=== PATIENT | male | born 1995 | race American Indian/Alaskan Native ===

== ENCOUNTER 2017-08-10 21:39 | Emergency (ER) | payer SELFPAY ==
[2017-08-10 21:50] VITALS: BP 142/82
[2017-08-10] MEDS ORDERED: TYLENOL ONE (22:03)
[2017-08-10] MEDS ORDERED: TYLENOL PO ONE (22:20)
--- NOTE | 2017-08-10 22:45 | XRay Report ---
FINAL REPORT PROCEDURE: XR HAND 3+V LT TECHNIQUE: LEFT hand radiographs, AP, lateral, and oblique views. CPT 44903-CY HISTORY: laceration to L 5th digit COMPARISON: No prior studies are available for comparison. FINDINGS: Fracture (s) and/or Dislocation(s): None . Alignment: Normal . Joint space(s): Normal . Soft tissues: Irregular soft tissue laceration is noted involving the 5th distal phalanx. Bone mineralization: Normal . Foreign bodies: None . IMPRESSION: No acute bony or joint injury.
[2017-08-11] MEDS ORDERED: PERCOCET 5/325 ONE (03:50)
[2017-08-11] MEDS ORDERED: PERCOCET 5/325 PO ONE ×2 (03:50→06:56)
[2017-08-11] MEDS ORDERED: XYLOCAINE 1% MPF 5 mL INFILTRATI ONE (05:39)
[2017-08-11] MEDS ORDERED: NACL 0.9% IR ONE (05:40)
[2017-08-11] MEDS ORDERED: TRIPLE ANTIBIOTIC TP ONE (05:40)
[2017-08-11] MEDS ORDERED: BOOSTRIX IM ONE (05:40)
[2017-08-11] MEDS ORDERED: CLEOCIN IM ONE (06:55)
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
== END 2017-08-11 09:04 | disposition home or self-care (01) ==
LOC: ED 21:39
DX: S61.217A Laceration without foreign body of left little finger without damage to nail, initial encounter (principal); S63.602A Unspecified sprain of left thumb, initial encounter; F17.200 Nicotine dependence, unspecified, uncomplicated; F12.10 Cannabis abuse, uncomplicated; W27.8XXA Contact with other nonpowered hand tool, initial encounter; Y93.89 Activity, other specified; Y99.8 Other external cause status; Y92.89 Other specified places as the place of occurrence of the external cause
CPT/HCPCS: 90471; 90715; 96372; A6250

== ENCOUNTER 2017-08-17 21:59 | Emergency (ER) | payer SELFPAY ==
[2017-08-17 23:35] VITALS: BP 133/75
[2017-08-18 00:12] LABS: Basophils # (Auto) 0.1 K/mm3 (0.0-0.1); Basophils % (Auto) 0.9 % (0.0-1.8); Eosinophils # (Auto) 0.2 K/mm3 (0.0-0.4); Eosinophils % (Auto) 2.6 % (0.0-4.3); Hematocrit 38.3 % (35.5-45.6); Hemoglobin 12.7 gm/dl (11.8-15.2); Lymphocytes # (Auto) 3.5 K/mm3 (1.2-5.4); Lymphocytes % (Auto) 44.8 % (13.4-35.0); Mean Corpuscular HGB Conc 33 % (32-34); Mean Corpuscular Hemoglobin 29 pg (28-32); Mean Corpuscular Volume 87 fl (84-94); Monocytes # (Auto) 0.5 K/mm3 (0.0-0.8); Monocytes % (Auto) 6.5 % (0.0-7.3); Platelet Count 257 K/mm3 (140-440); Red Blood Count 4.42 M/mm3 (3.65-5.03); Red Cell Distribution Width 14.6 % (13.2-15.2)
--- NOTE | 2017-08-18 00:17 | XRay Report ---
FINAL REPORT PROCEDURE: XR FINGER(S) 2+V LT TECHNIQUE: LEFT 5th finger radiographs, including AP, lateral, and oblique views. HISTORY: wound to left pinky finger COMPARISON: No prior studies are available for comparison. FINDINGS: Fracture (s) and/or Dislocation(s): There is no definite fracture. There is motion artifact on 1 of the views.. Alignment: Normal. Joint space(s): Normal . Soft tissues: There is mild soft tissue swelling of the 5th digit. There is no foreign body.. Bone mineralization: Normal . Foreign bodies: None . IMPRESSION: There is no fracture or malalignment. There is soft tissue swelling.
[2017-08-18 00:27] LABS: Alanine Aminotransferase 12 units/L (7-56); Albumin 4.5 g/dL (3.9-5); BUN/Creatinine Ratio 10; Blood Urea Nitrogen 9 mg/dL (9-20); Calcium 9.1 mg/dL (8.4-10.2); Hemolysis Index 44
[2017-08-18 00:39] LABS: INR 0.85 (0.87-1.13)
[2017-08-18 00:40] LABS: Partial Thromboplastin Time 31.8 Sec. (24.2-36.6)
--- NOTE | 2017-08-18 00:59 | Emergency Department Report ---
- General Chief Complaint: Laceration/Recheck/Suture Stated Complaint: WOUND CHECK Source: patient Mode of arrival: Ambulatory Limitations: No Limitations - History of Present Illness Initial Comments: 22-year-old -[place] male comes in for wound check/suture removal. Patient reports that he had sutures placed to his left fifth finger 7 days ago. Patient had approximately 20 sutures placed in his finger. He now comes in with the end of the finger black with decreased sensation. Patient reports that he's been cleaning with soap and water not scrubbing the area to agitate the sutures at all. He reports that he has been taken his medication as prescribed. He reports he has not been taken the pain medication as he knows the Keflex is more important. Patient originally injured his finger on a circular saw at work. Extremity Location: Left: Hand (this digit tip) Place: work Patient Tetanus UTD: Yes Context: accidental Associated Symptoms: loss of feeling/numbness - Related Data Previous Rx's Medication Instructions Recorded Last Taken Type Acetaminophen/Codeine [Tylenol 1 tab PO Q6H PRN #15 tab 08/11/17 Unknown Rx /Codeine # 3 tab] Cephalexin [Keflex] 500 mg PO Q8HR 10 Days #30 cap 08/11/17 Unknown Rx Ibuprofen [Motrin] 600 mg PO Q8H PRN #15 tablet 08/11/17 Unknown Rx Allergies Allergy/AdvReac Type Severity Reaction Status Date / Time No Known Allergies Allergy Unverified 08/10/17 22:03 ED Review of Systems ROS: Stated complaint: WOUND CHECK Other details as noted in HPI Constitutional: denies: chills, fever Gastrointestinal: denies: abdominal pain, nausea, vomiting, diarrhea Skin: change in color (left fifth distal digit) Neurological: numbness (left fifth digit tip) Psychiatric: denies: anxiety, depression Hematological/Lymphatic: denies: easy bleeding, easy bruising ED Past Medical Hx - Past Medical History Previous Medical History?: No Additional medical history: scoliosis - Social History Smoking Status: Current Every Day Smoker Substance Use Type: Marijuana - Medications Home Medications: Home Medications Medication Instructions Recorded Confirmed Last Taken Type Acetaminophen/Codeine [Tylenol 1 tab PO Q6H PRN #15 tab 08/11/17 Unknown Rx /Codeine # 3 tab] Cephalexin [Keflex] 500 mg PO Q8HR 10 Days #30 cap 08/11/17 Unknown Rx Ibuprofen [Motrin] 600 mg PO Q8H PRN #15 tablet 08/11/17 Unknown Rx ED Physical Exam - General Limitations: No Limitations General appearance: alert, in no apparent distress - Head Head exam: Present: atraumatic, normocephalic - ENT ENT exam: Present: mucous membranes moist - Expanded Upper Extremity Exam Left Hand Wrist exam: Present: dislocation (left fifth distal digit black /no perfusion) Vascular: Present: vascular compromise (left fifth distal digit) - Psychiatric Psychiatric exam: Present: normal affect, normal mood - Skin Skin exam: Present: warm, dry, intact. Absent: normal color (left distal fifth digit black), rash ED Course Vital Signs 08/17/17 23:29 Temperature 98.2 F Pulse Rate 61 Respiratory 14 Rate Blood Pressure 133/75 O2 Sat by Pulse 100 Oximetry ED Medical Decision Making - Lab Data Result diagrams: 08/17/17 23:45 08/17/17 23:45 - Radiology Data Radiology results: report reviewed, image reviewed FINDINGS: Fracture (s) and/or Dislocation(s): There is no definite fracture. There is motion artifact on 1 of the views.. Alignment: Normal. Joint space(s): Normal . Soft tissues: There is mild soft tissue swelling of the 5th digit. There is no foreign body.. Bone mineralization: Normal . Foreign bodies: None . IMPRESSION: There is no fracture or malalignment. There is soft tissue swelling. Transcribed By: [place] Dictated By: JEFF FRANKLIN MD Electronically Authenticated By: JEFF FRANKLIN MD Signed Date/Time: 08/18/1712 DD/ TD/TT: 08/18/1712 - Medical Decision Making Patient has been evaluated by this provider fast track. Labs appear to be stable x-ray shows no fracture. Dr. Hammond evaluated patient's finger. We discussed to keep the sutures in and refer him to [facility] within the next 24-48 hours. Discussed this with the patient patient verbalized understanding. Discussed the patient to continue with antibiotics and pain medication as needed. Discussed the patient he can continue with the splint if this helps with this pain. Patient verbalized understanding Critical care attestation.: If time is entered above; I have spent that time in minutes in the direct care of this critically ill patient, excluding procedure time. ED Disposition Clinical Impression: Ischemic necrosis of finger Disposition: DC-01 TO HOME OR SELFCARE Is pt being admited?: No Does the pt Need Aspirin: No Condition: Stable Instructions: Finger Laceration (ED) Additional Instructions: Please continue with antibiotics and pain medication as prescribed. It is very important for you to follow-up with a hand specialist at [place]. You needs to follow-up with them within the next 24-48 hours. Referrals: VAHID VINCENT MD [Primary Care Provider] - 3-5 Days ANA BINGHAM MD [Referring] - 3-5 Days Forms: Work/School Release Form(ED)
== END 2017-08-18 01:38 | disposition home or self-care (01) ==
LOC: ED 21:59
DX: I96 Gangrene, not elsewhere classified (principal); F17.200 Nicotine dependence, unspecified, uncomplicated
CPT/HCPCS: 36415; 80053; 85025; 85610; 85730; 87040